=== PATIENT | male | born 1945 | race Two or more races ===

== ENCOUNTER 2021-05-30 08:40 | Emergency (ER) | payer MEDICARE, OTHER ==
[~2021-05-30] VITALS: Ht 172.7 cm; Wt 102.1 kg
[2021-05-30] MEDS ORDERED: ONDANSETRON HCL 4 MG/2 ML VIAL IV ONE (09:30)
[2021-05-30] MEDS ORDERED: MORPHINE SULFATE 4 MG/ML SYR/VIAL IV ONE (09:30)
[2021-05-30 09:44] VITALS: BP 116/91
[2021-05-30] MEDS ORDERED: SODIUM CHLORIDE 0.9% 500 ML IV ONE (10:30)
[2021-05-30] MEDS ORDERED: NOREPINEPHRINE 8 MG/250ML KIT 250 ML IV ONE (11:07)
[2021-05-30] MEDS ORDERED: EPINEPHrine HCL 1 MG/10 ML SYRG ONE ×2 (11:24→11:31)
== END 2021-05-30 11:31 ==
LOC: ER 08:40 → EDBD 08:40 → ER 11:31
DX: I46.9 Cardiac arrest, cause unspecified (principal); R40.20 Unspecified coma; R57.8 Other shock; R06.89 Other abnormalities of breathing; G89.29 Other chronic pain; M54.50 Low back pain, unspecified; E78.5 Hyperlipidemia, unspecified; I10 Essential (primary) hypertension; Z88.0 Allergy status to penicillin; Z88.1 Allergy status to other antibiotic agents
CPT/HCPCS: 31500; 36430; 36556; 72131; 86920; 92950; 93005; 96361; 96374; 96375; 99291; J0171; J2270; J2405; J7030; P9016